=== PATIENT | female | born 1955 | race Caucasian/White ===

== ENCOUNTER 2017-09-21 13:31 | Outpatient (CLI) | payer MEDICARE, OTHER | END 2017-09-21 13:32 | disposition home or self-care (01) | LOC: BICMAMMO 13:31 | PROVIDERS: ATTEND Internal Medicine | DX: Z12.31 Encounter for screening mammogram for malignant neoplasm of breast (principal) | CPT/HCPCS: 77063; 77067 ==

== ENCOUNTER 2018-10-30 11:21 | Outpatient (CLI) | payer MEDICARE, OTHER | END 2018-10-30 11:22 | disposition home or self-care (01) | LOC: BICMAMMO 11:21 | PROVIDERS: ATTEND Internal Medicine | DX: Z12.31 Encounter for screening mammogram for malignant neoplasm of breast (principal); R92.1 Mammographic calcification found on diagnostic imaging of breast | CPT/HCPCS: 77063; 77067 ==

== ENCOUNTER 2019-03-14 08:48 | Outpatient (CLI) | payer MEDICARE, OTHER ==
--- NOTE | 2019-03-14 10:46 | ULT ---
COMPLETE ABDOMEN ULTRASOUND: INDICATION: History of hepatomegaly. COMPARISON: None. FINDINGS: The liver is enlarged measuring 17.7 cm. No focal liver lesion is evident. The spleen is upper limi ts of normal size measuring 12.6 cm. There is a small gallstone within the gallbladder. No pericholecystic fluid is evident. There is mi ld gallbladder wall thickening measuring 3.5 mm. No sonographic Diaz's sign is reported. Common b ile duct measures 3.6 mm. Appropriate hepatopetal flow is seen within the portal vein. The right ki dney measures 9.2 x 4.6 x 4.1 cm. The right renal cortex measures 1.18 cm. The left kidney measures 9.7 x 4.9 x 4.3 cm. The left renal cortex measures 1.1 cm. Visualized aspects of the pancreas, aorta, and IVC were within normal limits. IMPRESSION: 1. Mild hepatomegaly. 2. The spleen is upper limits of normal for size measuring 12.6 cm. 3. Renal cortical thinning bilaterally. POS: [facility]
== END 2019-03-14 08:49 | disposition home or self-care (01) ==
LOC: BICULT 08:48
PROVIDERS: ATTEND Internal Medicine
DX: R16.0 Hepatomegaly, not elsewhere classified (principal); N28.89 Other specified disorders of kidney and ureter
CPT/HCPCS: 76700

== ENCOUNTER 2019-08-06 11:56 | Outpatient (CLI) | payer MEDICARE, OTHER ==
--- NOTE | 2019-08-06 13:47 | MRI ---
MRI ABDOMEN WITHOUT CONTRAST AND MRCP: HISTORY: A 64-year-old female with abnormal liver function tests. FINDINGS: The liver, spleen, pancreas and adrenal glands have a normal appearance. Small gallstones are present . No biliary or pancreatic ductal dilatation is noted. There are bilateral renal cysts. No free fluid or lymphadenopathy is noted. There is no evidence of aneurysmal dilatation of the abdominal aorta. B one marrow signal is normal. IMPRESSION: 1. Cholelithiasis. 2. Bilateral renal cysts. POS: [facility]
== END 2019-08-06 11:57 | disposition home or self-care (01) ==
LOC: BICMRI 11:56
PROVIDERS: ATTEND Internal Medicine Gastroenterology
DX: Z12.11 Encounter for screening for malignant neoplasm of colon (principal); R94.5 Abnormal results of liver function studies; N18.9 Chronic kidney disease, unspecified; R16.2 Hepatomegaly with splenomegaly, not elsewhere classified; K80.20 Calculus of gallbladder without cholecystitis without obstruction; N28.1 Cyst of kidney, acquired
CPT/HCPCS: 74181

== ENCOUNTER 2020-07-14 08:48 | Outpatient (CLI) | payer MEDICARE, OTHER ==
--- NOTE | 2020-07-14 11:21 | CT ---
CT OF THE [facility]ORAX UTILIZING LUNG CANCER SCREENING PROTOCOL PERFORMED WITHOUT IV CONTRAST: Date: 07/14/2020 INDICATION: History of low dose lung cancer screening evaluation; current smoker of approximately 1 pack/day for 32 years. History of diabetes and currently on dialysis. COMPARISON: None. FINDINGS: There is scattered moderate centrilobular emphysema. There are calcified granuloma in the right upper lobe. No suspicious pulmonary nodule is seen. Areas of mild scarring and subsegmental volume loss se en within the lingula and right middle lobe. Small calcified granuloma is seen within the right lower lobe. There are prominent mitral annular calcifications. There are coronary artery and thoracic aortic calc ifications. No definite enlarged lymph nodes are evident. There are layered gallstones within the gal lbladder. Adrenal glands are normal appearing. There is scattered degenerative and osteoarthritic mickie nge. No definite acute osseous abnormality is evident. IMPRESSION: 1. Lung-RADS category 2 - Benign. Recommend low dose annual lung cancer screening CT in 1 year. 2. Category S: Coronary artery thoracic aortic calcifications, mitral annular calcifications, cholel ithiasis, moderate emphysema. POS: [facility]
== END 2020-07-14 08:49 | disposition home or self-care (01) ==
LOC: BICCT 08:48
PROVIDERS: ATTEND Internal Medicine
DX: Z12.2 Encounter for screening for malignant neoplasm of respiratory organs (principal); F17.210 Nicotine dependence, cigarettes, uncomplicated; I25.10 Atherosclerotic heart disease of native coronary artery without angina pectoris; I70.0 Atherosclerosis of aorta; I05.0 Rheumatic mitral stenosis
CPT/HCPCS: G0297

== ENCOUNTER 2020-08-18 10:39 | Outpatient (CLI) | payer MEDICARE, OTHER ==
--- NOTE | 2020-08-18 11:35 | MMO ---
Bilateral MAMMO Bilat Screen [facility]. CLINICAL HISTORY: Patient is 65 years old and is seen for screening. The patient has no family history of breast cancer. The patient has no personal history of cancer. VIEWS: The views performed were: bilateral craniocaudal with tomosynthesis; bilateral mediolateral oblique; and bilateral mediolateral oblique with tomosynthesis. FILMS COMPARED: The present examination has been compared to prior imaging studies performed at [facility] on 09/21/2017 and 10/30/2018. This study has been interpreted with the assistance of computer-aided detection. MAMMOGRAM FINDINGS: There are scattered fibroglandular densities. Benign calcifications are noted bilaterally. There are no suspicious masses, suspicious calcifications, or new areas of architectural distortion. IMPRESSION: THERE IS NO MAMMOGRAPHIC EVIDENCE OF MALIGNANCY. A ROUTINE FOLLOW-UP MAMMOGRAM IN 1 YEAR IS RECOMMENDED. THE RESULTS OF THIS EXAM WERE SENT TO THE PATIENT. ACR BI-RADS Category 2 - Benign finding MAMMOGRAPHY NOTE: 1. A negative mammogram report should not delay a biopsy if a dominant of clinically suspicious mass is present. 2. Approximately 10% to 15% of breast cancers are not detected by mammography. 3. Adenosis and dense breasts may obscure an underlying neoplasm. Reported by: DEJON HAINES MD Electonically Signed: [id number]
== END 2020-08-18 10:40 | disposition home or self-care (01) ==
LOC: BICMAMMO 10:39
PROVIDERS: ATTEND Internal Medicine
DX: Z12.31 Encounter for screening mammogram for malignant neoplasm of breast (principal)
CPT/HCPCS: 77063; 77067

== ENCOUNTER 2021-10-12 08:26 | Outpatient (CLI) | payer MEDICARE | END 2021-10-12 08:27 | disposition home or self-care (01) | LOC: BICMAMMO 08:26 | PROVIDERS: ATTEND Internal Medicine | DX: Z12.31 Encounter for screening mammogram for malignant neoplasm of breast (principal); Z13.820 Encounter for screening for osteoporosis; Z12.2 Encounter for screening for malignant neoplasm of respiratory organs; M85.852 Other specified disorders of bone density and structure, left thigh; M85.851 Other specified disorders of bone density and structure, right thigh; Z78.0 Asymptomatic menopausal state; F17.210 Nicotine dependence, cigarettes, uncomplicated | CPT/HCPCS: 77063; 77067; 77080 ==

== ENCOUNTER 2021-10-21 09:36 | Outpatient (CLI) | payer MEDICARE | END 2021-10-21 09:37 | disposition home or self-care (01) | LOC: BICCT 09:36 | PROVIDERS: ATTEND Internal Medicine | DX: Z12.2 Encounter for screening for malignant neoplasm of respiratory organs (principal); F17.209 Nicotine dependence, unspecified, with unspecified nicotine-induced disorders | CPT/HCPCS: 71271 ==

== ENCOUNTER 2022-03-25 16:49 | Inpatient (IN) | payer MEDICARE ==
[2022-03-25 18:34] LABS: SARS-CoV-2 NAA Rapid Test DETECTED (NotDetected)
[2022-03-25 18:43] LABS: Hemoglobin 10.8 g/dL (12.0-16.0); Mean Corpuscular HGB CONC 32.8 g/dL (32.0-36.0); Mean Corpuscular Hemoglobin 35.4 pg (27.0-31.0); Mean Platelet Volume 8.9 fL (7.4-10.4); Platelet Count 216 thou/uL (130-400); Red Blood Cell (RBC) Count 3.05 mill/uL (4.20-5.40); White Blood Cell (WBC) Count 5.5 thou/uL (4.8-10.8)
[2022-03-25 18:56] LABS: Band 3 % (5-11); Lymphocytes 4 % (21-51); MDiff Complete? YES; Macrocytosis SLIGHT = 6-15 cells (100X) (0-5/hpf); Monocytes 10 % (0-10); Neutrophil 83 % (42-75); Platelet Morphology Comment Appears Adequate; Polychromasia SLIGHT = 2-3 cells (100X) (0-2/hpf)
[2022-03-25 19:01] LABS: ALT (SGPT) 11 U/L (8-55); AST (SGOT) 41 U/L (5-34); Albumin 3.3 g/dL (3.4-4.8); Alkaline Phosphatase 230 U/L (40-110); Anion Gap 20 mmol/L (10-20); BUN (Urea Nitrogen) 16 mg/dL (9.8-20.1); Bilirubin, Total 1.6 mg/dL (0.2-1.2); Calc. Creatinine Clearance 0 mL/min (70-130); Calcium 8.8 mg/dL (7.8-10.44); Carbon Dioxide 28 mmol/L (23-31); Chloride 95 mmol/L (98-107); Estimated GFR 12; Globulin 3.3 g/dL (2.4-3.5); Glucose 221 mg/dL (80-115); Potassium 3.9 mmol/L (3.5-5.1); Protein, Total 6.6 g/dL (5.8-8.1); Sodium 139 mmol/L (136-145)
[2022-03-25] MEDS ORDERED: cefTRIAXone\\ROCEPHIN 2 GM VIAL ONE (19:43)
[2022-03-25] MEDS ORDERED: Dextrose 5% in Water 1,000 ML IV PRN (21:42)
[2022-03-25] MEDS ORDERED: Benzonatate 100 MG CAP PO PRN (21:42)
[2022-03-25] MEDS ORDERED: Dextrose 50% Abboject 50 ML SYRINGE SLOW IVP PRN (21:42)
[2022-03-25] MEDS ORDERED: Azithromycin 500 MG VIAL ONE (23:15)
[2022-03-26] MEDS: HumaLOG 300 UNITS/3 ML VIAL SC PRN ×3 (06:19→17:53)
[2022-03-26 07:33] LABS: Anion Gap 19 mmol/L (10-20); BUN (Urea Nitrogen) 21 mg/dL (9.8-20.1); CRP (Inflammatory) 14.76 mg/dL (= or < 0.5); Calc. Creatinine Clearance 14 mL/min (70-130); Calcium 8.9 mg/dL (7.8-10.44); Carbon Dioxide 26 mmol/L (23-31); Chloride 96 mmol/L (98-107); Estimated GFR 9; Glucose 201 mg/dL (80-115); Potassium 3.1 mmol/L (3.5-5.1); Sodium 138 mmol/L (136-145)
[2022-03-26] MEDS: Ascorbic Acid 500 mg Chewable Tablet PO SCH (08:29)
[2022-03-26] MEDS: Enoxaparin Sodium 30 MG/0.3 ML SYRINGE SC SCH (08:29)
[2022-03-26] MEDS: Cholecalciferol (Vitamin D3) 400 UNITS TAB PO SCH (08:29)
[2022-03-26] MEDS: Zinc Sulfate 220 MG CAP PO SCH (08:29)
[2022-03-26] MEDS ORDERED: Pantoprazole 40 MG VIAL IVP SCH (09:00)
[2022-03-26 09:14] LABS: Eosinophils 2 % (0-10); Hemoglobin 10.2 g/dL (12.0-16.0); Lymphocytes 11 % (21-51); MDiff Complete? YES; Mean Corpuscular HGB CONC 33.1 g/dL (32.0-36.0); Mean Corpuscular Hemoglobin 35.9 pg (27.0-31.0); Mean Platelet Volume 8.8 fL (7.4-10.4); Monocytes 2 % (0-10); Neutrophil 84 % (42-75); Platelet Count 228 thou/uL (130-400); RBC Distribution Width 13.9 % (11.5-14.5); Reactive Lymphocytes 1 % (0-10); Red Blood Cell (RBC) Count 2.85 mill/uL (4.20-5.40); White Blood Cell (WBC) Count 5.2 thou/uL (4.8-10.8)
[2022-03-26] MEDS ORDERED: Potassium Chloride 20 MEQ TAB PO SCH (10:00)
[2022-03-26] MEDS ORDERED: Morphine 2 MG/ML VIAL SLOW IVP PRN (13:02)
[2022-03-26] MEDS: Dexamethasone 10 MG/ML VIAL SLOW IVP SCH (21:21)
[2022-03-26] MEDS ORDERED: REMDESIVIR 100 MG in Sodium Chloride 0.9% 250 ML 230 ML IV SCH (21:45)
[2022-03-27] MEDS: HumaLOG 300 UNITS/3 ML VIAL SC PRN ×4 (06:04→21:17)
[2022-03-27] MEDS: Zinc Sulfate 220 MG CAP PO SCH (08:16)
[2022-03-27] MEDS: Enoxaparin Sodium 30 MG/0.3 ML SYRINGE SC SCH (08:16)
[2022-03-27] MEDS: Cholecalciferol (Vitamin D3) 400 UNITS TAB PO SCH (08:16)
[2022-03-27] MEDS: Ascorbic Acid 500 mg Chewable Tablet PO SCH (08:16)
[2022-03-27 12:08] LABS: Anion Gap 19 mmol/L (10-20); BUN (Urea Nitrogen) 36 mg/dL (9.8-20.1); Calc. Creatinine Clearance 10 mL/min (70-130); Calcium 9.1 mg/dL (7.8-10.44); Carbon Dioxide 24 mmol/L (23-31); Chloride 92 mmol/L (98-107); Estimated GFR 6; Potassium 4.3 mmol/L (3.5-5.1); Sodium 131 mmol/L (136-145)
[2022-03-27 12:14] LABS: Glucose 554 mg/dL (80-115)
[2022-03-27] MEDS: Dexamethasone 10 MG/ML VIAL SLOW IVP SCH (21:10)
[2022-03-28] MEDS ORDERED: ALPRAZolam 0.5 MG TAB PO SCH (05:00)
[2022-03-28] MEDS: HumaLOG 300 UNITS/3 ML VIAL SC PRN ×2 (06:08→12:30)
[2022-03-28 06:48] LABS: #Lymphocytes 0.5 thou/uL (1.20-3.40); #Monocytes 0.3 thou/uL (0.11-0.59); %Basophils 0.1 % (0.0-1.0); %Eosinophils 0.3 % (0.0-10.0); %Lymphocytes 6.1 % (21.0-51.0); %Monocytes 4.4 % (0.0-10.0); %Neutrophils 89.1 % (42.0-75.0); Hemoglobin 9.4 g/dL (12.0-16.0); Mean Corpuscular HGB CONC 32.8 g/dL (32.0-36.0); Mean Corpuscular Hemoglobin 35.3 pg (27.0-31.0); Mean Platelet Volume 9.3 fL (7.4-10.4); Platelet Count 261 thou/uL (130-400); RBC Distribution Width 13.9 % (11.5-14.5); Red Blood Cell (RBC) Count 2.68 mill/uL (4.20-5.40); White Blood Cell (WBC) Count 7.9 thou/uL (4.8-10.8)
[2022-03-28 07:15] LABS: Anion Gap 23 mmol/L (10-20); BUN (Urea Nitrogen) 52 mg/dL (9.8-20.1); Calc. Creatinine Clearance 9 mL/min (70-130); Calcium 9.1 mg/dL (7.8-10.44); Carbon Dioxide 21 mmol/L (23-31); Chloride 92 mmol/L (98-107); Estimated GFR 5; Glucose 368 mg/dL (80-115); Potassium 4.6 mmol/L (3.5-5.1); Sodium 131 mmol/L (136-145)
[2022-03-28] MEDS: NIFEdipine XL 60 MG TAB PO SCH (09:22)
[2022-03-28] MEDS: Ascorbic Acid 500 mg Chewable Tablet PO SCH (09:22)
[2022-03-28] MEDS: Enoxaparin Sodium 30 MG/0.3 ML SYRINGE SC SCH (09:22)
[2022-03-28] MEDS: Zinc Sulfate 220 MG CAP PO SCH (09:22)
[2022-03-28] MEDS: Cholecalciferol (Vitamin D3) 400 UNITS TAB PO SCH (09:23)
[2022-03-28] MEDS ORDERED: Lantus 1000 UNITS/10 ML VIAL SC SCH (12:00)
[2022-03-28] MEDS ORDERED: Insulin Glargine 30 UNITS/0.3 ML VIAL SC SCH (12:30)
[2022-03-28 15:42] LABS: HBSAg Index 0.37 S/CO (0-0.99); Hep B Surf Ag Non-Reactive S/CO (NonReactive)
[2022-03-28] MEDS ORDERED: Lidocaine-Prilocaine 2.5% Cream 5 GM TUBE TOP SCH (15:45)
[2022-03-28] MEDS ORDERED: Lidocaine 1% PF 5 ML VIAL FS SCH (16:15)
[2022-03-28] MEDS: Albuterol 200 PUFF (6.7GM INHALER) INH SCH (21:04)
[2022-03-28] MEDS ORDERED: Dexamethasone 4 MG TAB PO SCH (22:00)
[2022-03-29] MEDS: Albuterol 200 PUFF (6.7GM INHALER) INH SCH ×4 (02:37→18:06)
[2022-03-29] MEDS: HumaLOG 300 UNITS/3 ML VIAL SC PRN ×2 (06:22→16:55)
[2022-03-29 06:56] LABS: #Lymphocytes 0.4 thou/uL (1.20-3.40); #Monocytes 0.4 thou/uL (0.11-0.59); #Neutrophils 7.7 thou/uL (1.40-6.50); %Basophils 0.2 % (0.0-1.0); %Eosinophils 0.3 % (0.0-10.0); %Lymphocytes 4.8 % (21.0-51.0); %Monocytes 4.7 % (0.0-10.0); Hemoglobin 10.2 g/dL (12.0-16.0); Mean Corpuscular HGB CONC 33.6 g/dL (32.0-36.0); Mean Corpuscular Hemoglobin 35.9 pg (27.0-31.0); Mean Platelet Volume 9.3 fL (7.4-10.4); Platelet Count 312 thou/uL (130-400); RBC Distribution Width 14.1 % (11.5-14.5); Red Blood Cell (RBC) Count 2.86 mill/uL (4.20-5.40); White Blood Cell (WBC) Count 8.5 thou/uL (4.8-10.8)
[2022-03-29 07:19] LABS: Anion Gap 20 mmol/L (10-20); BUN (Urea Nitrogen) 31 mg/dL (9.8-20.1); Calc. Creatinine Clearance 13 mL/min (70-130); Calcium 9.1 mg/dL (7.8-10.44); Carbon Dioxide 26 mmol/L (23-31); Chloride 93 mmol/L (98-107); Estimated GFR 8; Glucose 535 mg/dL (80-115); Sodium 135 mmol/L (136-145)
[2022-03-29] MEDS: Enoxaparin Sodium 30 MG/0.3 ML SYRINGE SC SCH (08:23)
[2022-03-29] MEDS: NIFEdipine XL 60 MG TAB PO SCH (08:24)
[2022-03-29] MEDS: Cholecalciferol (Vitamin D3) 400 UNITS TAB PO SCH (08:24)
[2022-03-29] MEDS: Zinc Sulfate 220 MG CAP PO SCH (08:27)
[2022-03-29] MEDS: Ascorbic Acid 500 mg Chewable Tablet PO SCH (08:27)
[2022-03-29 08:59] VITALS: BMI 31.8
[2022-03-29] MEDS ORDERED: Insulin Glargine 30 UNITS/0.3 ML VIAL SC SCH ×3 (09:00→14:15)
[2022-03-29 14:06] LABS: Glucose 605 mg/dL (80-115)
[2022-03-29] MEDS ORDERED: Insulin Regular 300 UNITS/3 ML VIAL IVP SCH (14:15)
[2022-03-29] MEDS ORDERED: HumaLOG 300 UNITS/3 ML VIAL SC SCH (21:45)
[2022-03-30] MEDS: Albuterol 200 PUFF (6.7GM INHALER) INH SCH ×3 (02:28→12:48)
[2022-03-30 05:51] LABS: #Eosinphils 0.1 thou/uL (0.0-0.7); #Lymphocytes 0.8 thou/uL (1.20-3.40); #Monocytes 1.2 thou/uL (0.11-0.59); #Neutrophils 7.4 thou/uL (1.40-6.50); %Basophils 0.1 % (0.0-1.0); %Eosinophils 0.8 % (0.0-10.0); %Lymphocytes 8.3 % (21.0-51.0); %Monocytes 12.9 % (0.0-10.0); %Neutrophils 77.9 % (42.0-75.0); Hemoglobin 9.6 g/dL (12.0-16.0); Mean Corpuscular HGB CONC 33.6 g/dL (32.0-36.0); Mean Corpuscular Hemoglobin 34.9 pg (27.0-31.0); Mean Platelet Volume 9.1 fL (7.4-10.4); Platelet Count 265 thou/uL (130-400); Red Blood Cell (RBC) Count 2.75 mill/uL (4.20-5.40); White Blood Cell (WBC) Count 9.4 thou/uL (4.8-10.8)
[2022-03-30 06:11] LABS: Anion Gap 20 mmol/L (10-20); BUN (Urea Nitrogen) 44 mg/dL (9.8-20.1); Calc. Creatinine Clearance 11 mL/min (70-130); Calcium 9.2 mg/dL (7.8-10.44); Carbon Dioxide 25 mmol/L (23-31); Chloride 95 mmol/L (98-107); Estimated GFR 6; Glucose 269 mg/dL (80-115); Potassium 3.6 mmol/L (3.5-5.1); Sodium 136 mmol/L (136-145)
[2022-03-30 08:17] VITALS: BP 106/63; TEMP 97.7
[2022-03-30] MEDS: Enoxaparin Sodium 30 MG/0.3 ML SYRINGE SC SCH (08:17)
[2022-03-30] MEDS: Ascorbic Acid 500 mg Chewable Tablet PO SCH (08:18)
[2022-03-30] MEDS: Zinc Sulfate 220 MG CAP PO SCH (08:19)
[2022-03-30] MEDS: NIFEdipine XL 60 MG TAB PO SCH (08:19)
[2022-03-30] MEDS: Cholecalciferol (Vitamin D3) 400 UNITS TAB PO SCH (08:19)
[2022-03-30] MEDS ORDERED: Insulin Glargine 30 UNITS/0.3 ML VIAL SC SCH (09:00)
[2022-03-30] MEDS: HumaLOG 300 UNITS/3 ML VIAL SC PRN (13:49)
== END 2022-03-30 17:15 | disposition home or self-care (01) | DRG 177 ==
LOC: ERS 16:49 → T4-B 19:46
PROVIDERS: ADMIT Student in an Organized Health Care Education/Training Program; ATTEND Internal Medicine
PROC: 8E0ZXY6 Isolation (ICD-10-PCS; principal; 2022-03-25)
PROC: 5A1D70Z Performance of Urinary Filtration, Intermittent, Less than 6 Hours Per Day (ICD-10-PCS; 2022-03-28)
DX: U07.1 COVID-19 (principal); J96.01 Acute respiratory failure with hypoxia; N18.6 End stage renal disease; J12.82 Pneumonia due to coronavirus disease 2019; J44.1 Chronic obstructive pulmonary disease with (acute) exacerbation; J44.0 Chronic obstructive pulmonary disease with (acute) lower respiratory infection; E11.65 Type 2 diabetes mellitus with hyperglycemia; T38.0X5A Adverse effect of glucocorticoids and synthetic analogues, initial encounter; E87.6 Hypokalemia; D63.1 Anemia in chronic kidney disease; E11.22 Type 2 diabetes mellitus with diabetic chronic kidney disease; Z99.2 Dependence on renal dialysis; Z79.51 Long term (current) use of inhaled steroids; Z79.890 Hormone replacement therapy; Z79.899 Other long term (current) drug therapy; Z79.4 Long term (current) use of insulin; Z88.8 Allergy status to other drugs, medicaments and biological substances; Z88.1 Allergy status to other antibiotic agents; Z88.6 Allergy status to analgesic agent
CPT/HCPCS: 36415; 36416; 71045; 80048; 80053; 83605; 85025; 86140; 87040; 87340; 90935; 93005; 96365; 96366; 96368; 97139; C9113; G0257; J0456; J0696; J1100; J1650; J1815; J2270; J8540

== ENCOUNTER 2022-05-05 08:59 | Outpatient (CLI) | payer MEDICARE | END 2022-05-05 09:00 | disposition home or self-care (01) | LOC: CT 08:59 | PROVIDERS: ATTEND Thoracic Surgery (Cardiothoracic Vascular Surgery) | DX: I70.25 Atherosclerosis of native arteries of other extremities with ulceration (principal); K74.60 Unspecified cirrhosis of liver; I77.1 Stricture of artery; K80.80 Other cholelithiasis without obstruction | CPT/HCPCS: 75635 ==

== ENCOUNTER 2022-09-02 09:19 | Emergency (ER) | payer MEDICARE ==
[2022-09-02 10:26] LABS: #Eosinphils 0.6 thou/uL (0.0-0.7); #Lymphocytes 0.8 thou/uL (1.20-3.40); #Monocytes 0.9 thou/uL (0.11-0.59); #Neutrophils 5.2 thou/uL (1.40-6.50); %Basophils 0.1 % (0.0-1.0); %Eosinophils 8.4 % (0.0-10.0); %Lymphocytes 10.9 % (21.0-51.0); %Monocytes 12.1 % (0.0-10.0); %Neutrophils 68.4 % (42.0-75.0); Hemoglobin 7.7 g/dL (12.0-16.0); Mean Corpuscular HGB CONC 32.9 g/dL (32.0-36.0); Mean Corpuscular Hemoglobin 35.7 pg (27.0-31.0); Mean Platelet Volume 9.8 fL (7.4-10.4); Platelet Count 185 10x3/uL (130-400); RBC Distribution Width 14.6 % (11.5-14.5); Red Blood Cell (RBC) Count 2.15 mill/uL (4.20-5.40); White Blood Cell (WBC) Count 7.6 10x3/uL (4.8-10.8)
[2022-09-02 10:35] LABS: ALT (SGPT) 14 U/L (8-55); AST (SGOT) 29 U/L (5-34); Albumin 3.4 g/dL (3.4-4.8); Alkaline Phosphatase 491 U/L (40-110); Anion Gap 18 mmol/L (10-20); BUN (Urea Nitrogen) 78 mg/dL (9.8-20.1); Bilirubin, Total 0.8 mg/dL (0.2-1.2); Calc. Creatinine Clearance 0 mL/min (70-130); Calcium 9.3 mg/dL (7.8-10.44); Carbon Dioxide 28 mmol/L (23-31); Chloride 90 mmol/L (98-107); Estimated GFR 6; Globulin 3.7 g/dL (2.4-3.5); Glucose 373 mg/dL (80-115); Potassium 4.3 mmol/L (3.5-5.1); Protein, Total 7.1 g/dL (5.8-8.1); Sodium 132 mmol/L (136-145)
== END 2022-09-02 13:02 | disposition home or self-care (01) ==
LOC: ERS 09:19
DX: D64.9 Anemia, unspecified (principal); E11.22 Type 2 diabetes mellitus with diabetic chronic kidney disease; N18.6 End stage renal disease; Z99.2 Dependence on renal dialysis; Z79.82 Long term (current) use of aspirin
CPT/HCPCS: 36415; 80053; 86850; 86900; 86901; 99284

== ENCOUNTER 2022-10-18 10:14 | Outpatient (CLI) | payer MEDICARE, OTHER | END 2022-10-18 10:15 | disposition home or self-care (01) | LOC: ULT 10:14 | PROVIDERS: ATTEND Internal Medicine Geriatric Medicine | DX: I70.245 Atherosclerosis of native arteries of left leg with ulceration of other part of foot (principal); I70.244 Atherosclerosis of native arteries of left leg with ulceration of heel and midfoot; I70.235 Atherosclerosis of native arteries of right leg with ulceration of other part of foot | CPT/HCPCS: 93923 ==

== ENCOUNTER 2022-11-12 01:03 | Inpatient (IN) | payer MEDICARE ==
[2022-11-12] MEDS ORDERED: HYDROmorphone 0.5 MG/0.5 ML SYRINGE ONE (01:18)
[2022-11-12] MEDS ORDERED: Ondansetron PF 4 MG/2 ML Vial ONE (01:18)
[2022-11-12 02:03] LABS: #Eosinphils 0.2 thou/uL (0.0-0.7); #Monocytes 1.3 thou/uL (0.11-0.59); #Neutrophils 10.3 thou/uL (1.40-6.50); %Basophils 0.1 % (0.0-1.0); %Eosinophils 1.6 % (0.0-10.0); %Monocytes 10.1 % (0.0-10.0); %Neutrophils 80.2 % (42.0-75.0); Mean Corpuscular HGB CONC 31.1 g/dL (32.0-36.0); Mean Corpuscular Hemoglobin 29.6 pg (27.0-31.0); Mean Corpuscular Volume 95.2 fl (78.0-98.0); Platelet Count 193 10x3/uL (130-400); RBC Distribution Width 15.8 % (11.5-14.5); Red Blood Cell (RBC) Count 3.36 mill/uL (4.20-5.40); White Blood Cell (WBC) Count 12.9 10x3/uL (4.8-10.8)
[2022-11-12 02:54] LABS: ALT (SGPT) 22 U/L (8-55); AST (SGOT) 28 U/L (5-34); Albumin 2.5 g/dL (3.4-4.8); Alkaline Phosphatase 422 U/L (40-110); Anion Gap 19 mmol/L (10-20); BUN (Urea Nitrogen) 48 mg/dL (9.8-20.1); Bilirubin, Total 0.4 mg/dL (0.2-1.2); Calc. Creatinine Clearance 0 mL/min (70-130); Carbon Dioxide 23 mmol/L (23-31); Chloride 97 mmol/L (98-107); Estimated GFR 6; Globulin 3.5 g/dL (2.4-3.5); Glucose 113 mg/dL (80-115); Lipase 22 U/L (8-78); Magnesium 2.4 mg/dL (1.6-2.6); Potassium 2.7 mmol/L (3.5-5.1); Sodium 136 mmol/L (136-145)
[2022-11-12] MEDS ORDERED: Piperacillin/Tazobactam 3.375 GM VIAL ONE (03:27)
[2022-11-12 03:33] LABS: Bilirubin Negative (Negative); Blood, Urine 2+ (Negative); Clarity Turbid (Clear); Glucose, Urine (Dipstick) 150 mg/dL (Negative); Ketone, Urine Negative (Negative); Leukocyte 500 Leu/uL (Negative); Nitrite Negative (Negative); Protein, Urine (Dipstick) 70 mg/dL (Neg-Trace); Squamous Epithelial 0-3 HPF (0-3); Urobilinogen Normal mg/dL (Less than 2); pH, Urine 7.5 (5.0-9.0)
[2022-11-12 03:34] LABS: Bacteria/HPF 1+ HPF (None Seen)
[2022-11-12] MEDS ORDERED: Ondansetron ODT 4 MG TAB PO PRN (04:58)
[2022-11-12] MEDS ORDERED: Senokot S 8.6-50 MG TAB PO PRN (04:58)
[2022-11-12] MEDS ORDERED: HumaLOG 300 UNITS/3 ML VIAL SC PRN (05:00)
[2022-11-12] MEDS ORDERED: Dextrose 5% in Water 1,000 ML IV PRN (05:00)
[2022-11-12] MEDS ORDERED: Dextrose 50% Abboject 50 ML SYRINGE SLOW IVP PRN (05:00)
[2022-11-12] MEDS ORDERED: Albuterol 200 PUFF (6.7GM INHALER) INH PRN (05:02)
[2022-11-12] MEDS: Levothyroxine 150 MCG TAB PO SCH (06:25)
[2022-11-12 06:44] VITALS: BMI 32.3
[2022-11-12 07:20] LABS: SARS-CoV-2 NAA Rapid Test Not Detected (NotDetected)
[2022-11-12] MEDS ORDERED: ALPRAZolam 0.25 MG TAB PO PRN (07:54)
[2022-11-12] MEDS ORDERED: Piperacillin/Tazobactam 3.375 GM in Sodium Chloride 0.9% 100 ML IVPB SCH (08:00)
[2022-11-12 08:25] LABS: Glucose 42 mg/dL (80-115)
[2022-11-12] MEDS ORDERED: Insulin NPH Human Isophane 100 UNIT/ML (10 ML VIAL) SC SCH (09:00)
[2022-11-12] MEDS: Piperacillin/Tazobactam 3.375 GM in Sodium Chloride 0.9% 100 ML IVPB SCH ×2 (09:20→23:24)
[2022-11-12] MEDS: Famotidine 20 MG TAB PO SCH (09:25)
[2022-11-12 12:00] LABS: Glucose 132 mg/dL (80-115)
[2022-11-12] MEDS ORDERED: Potassium Chloride 20 MEQ TAB PO SCH (13:15)
[2022-11-12 13:29] LABS: Anion Gap 22 mmol/L (10-20); BUN (Urea Nitrogen) 48 mg/dL (9.8-20.1); Calc. Creatinine Clearance 10 mL/min (70-130); Calcium 9.8 mg/dL (7.8-10.44); Carbon Dioxide 22 mmol/L (23-31); Chloride 96 mmol/L (98-107); Estimated GFR 6; Glucose 103 mg/dL (80-115); Potassium 3.2 mmol/L (3.5-5.1); Sodium 137 mmol/L (136-145)
[2022-11-12] MEDS ORDERED: ISOVUE-370 76%-LOCM 1 ML ONE (15:13)
[2022-11-12 17:19] LABS: Glucose 105 mg/dL (80-115)
[2022-11-13] MEDS: Levothyroxine 150 MCG TAB PO SCH (06:27)
[2022-11-13 07:24] LABS: #Eosinphils 0.2 thou/uL (0.0-0.7); #Lymphocytes 0.9 thou/uL (1.20-3.40); #Monocytes 1.5 thou/uL (0.11-0.59); #Neutrophils 11.1 thou/uL (1.40-6.50); %Eosinophils 1.2 % (0.0-10.0); %Lymphocytes 6.8 % (21.0-51.0); %Neutrophils 80.9 % (42.0-75.0); Hemoglobin 10.1 g/dL (12.0-16.0); Mean Corpuscular HGB CONC 31.5 g/dL (32.0-36.0); Mean Corpuscular Hemoglobin 30.1 pg (27.0-31.0); Mean Corpuscular Volume 95.6 fl (78.0-98.0); Mean Platelet Volume 9.9 fL (7.4-10.4); Platelet Count 197 10x3/uL (130-400); Red Blood Cell (RBC) Count 3.35 mill/uL (4.20-5.40); White Blood Cell (WBC) Count 13.7 10x3/uL (4.8-10.8)
[2022-11-13 07:51] LABS: ALT (SGPT) 21 U/L (8-55); AST (SGOT) 27 U/L (5-34); Albumin 2.5 g/dL (3.4-4.8); Alkaline Phosphatase 408 U/L (40-110); Anion Gap 16 mmol/L (10-20); BUN (Urea Nitrogen) 26 mg/dL (9.8-20.1); Bilirubin, Total 0.6 mg/dL (0.2-1.2); Calc. Creatinine Clearance 15 mL/min (70-130); Calcium 9.2 mg/dL (7.8-10.44); Carbon Dioxide 27 mmol/L (23-31); Chloride 99 mmol/L (98-107); Estimated GFR 9; Globulin 3.6 g/dL (2.4-3.5); Glucose 65 mg/dL (80-115); Potassium 3.4 mmol/L (3.5-5.1); Protein, Total 6.1 g/dL (5.8-8.1); Sodium 139 mmol/L (136-145)
[2022-11-13] MEDS: Famotidine 20 MG TAB PO SCH (09:24)
[2022-11-13] MEDS: Piperacillin/Tazobactam 3.375 GM in Sodium Chloride 0.9% 100 ML IVPB SCH ×2 (09:24→20:59)
[2022-11-13] MEDS ORDERED: Potassium Chloride 20 MEQ TAB PO SCH (10:00)
[2022-11-14] MEDS ORDERED: Morphine 2 MG/ML VIAL SLOW IVP PRN (03:23)
[2022-11-14] MEDS: Levothyroxine 150 MCG TAB PO SCH (05:47)
[2022-11-14 07:32] LABS: ALT (SGPT) 24 U/L (8-55); AST (SGOT) 31 U/L (5-34); Albumin 2.4 g/dL (3.4-4.8); Alkaline Phosphatase 462 U/L (40-110); Anion Gap 18 mmol/L (10-20); BUN (Urea Nitrogen) 35 mg/dL (9.8-20.1); Bilirubin, Total 0.6 mg/dL (0.2-1.2); Calc. Creatinine Clearance 12 mL/min (70-130); Calcium 8.8 mg/dL (7.8-10.44); Carbon Dioxide 23 mmol/L (23-31); Chloride 101 mmol/L (98-107); Estimated GFR 7; Globulin 3.5 g/dL (2.4-3.5); Glucose 121 mg/dL (80-115); Potassium 3.4 mmol/L (3.5-5.1); Protein, Total 5.9 g/dL (5.8-8.1); Sodium 139 mmol/L (136-145)
[2022-11-14] MEDS: Famotidine 20 MG TAB PO SCH (07:47)
[2022-11-14] MEDS: Piperacillin/Tazobactam 3.375 GM in Sodium Chloride 0.9% 100 ML IVPB SCH (07:47)
[2022-11-14] MEDS: Acetaminophen 325 MG TAB PO PRN ×2 (07:48→14:18)
[2022-11-14 08:29] VITALS: BP 134/61; TEMP 97.7
[2022-11-14] MEDS ORDERED: Heparin 10,000 UNITS/ 10 ML VIAL ONE (09:07)
[2022-11-14 10:16] LABS: #Eosinphils 0.2 thou/uL (0.0-0.7); #Lymphocytes 0.9 thou/uL (1.20-3.40); #Monocytes 1.2 thou/uL (0.11-0.59); #Neutrophils 10.2 thou/uL (1.40-6.50); %Basophils 0.2 % (0.0-1.0); %Eosinophils 1.9 % (0.0-10.0); %Lymphocytes 7.3 % (21.0-51.0); %Monocytes 9.5 % (0.0-10.0); %Neutrophils 81.2 % (42.0-75.0); Mean Corpuscular HGB CONC 30.2 g/dL (32.0-36.0); Mean Corpuscular Hemoglobin 29.1 pg (27.0-31.0); Mean Corpuscular Volume 96.3 fl (78.0-98.0); Mean Platelet Volume 9.6 fL (7.4-10.4); Platelet Count 191 10x3/uL (130-400); Red Blood Cell (RBC) Count 3.43 mill/uL (4.20-5.40); White Blood Cell (WBC) Count 12.5 10x3/uL (4.8-10.8)
== END 2022-11-14 18:45 | DRG 444 ==
LOC: ERS 01:03 → SURG A 04:29
PROVIDERS: ADMIT Internal Medicine; ATTEND Internal Medicine
PROC: 5A1D70Z Performance of Urinary Filtration, Intermittent, Less than 6 Hours Per Day (ICD-10-PCS; principal; 2022-11-12)
DX: K80.50 Calculus of bile duct without cholangitis or cholecystitis without obstruction (principal); Z66 Do not resuscitate; Z51.5 Encounter for palliative care; Z20.822 Contact with and (suspected) exposure to COVID-19; N18.6 End stage renal disease; N39.0 Urinary tract infection, site not specified; L03.311 Cellulitis of abdominal wall; R18.8 Other ascites; I12.0 Hypertensive chronic kidney disease with stage 5 chronic kidney disease or end stage renal disease; N25.81 Secondary hyperparathyroidism of renal origin; E11.22 Type 2 diabetes mellitus with diabetic chronic kidney disease; E11.51 Type 2 diabetes mellitus with diabetic peripheral angiopathy without gangrene; K74.60 Unspecified cirrhosis of liver; D63.1 Anemia in chronic kidney disease; E11.65 Type 2 diabetes mellitus with hyperglycemia; E83.59 Other disorders of calcium metabolism; E66.01 Morbid (severe) obesity due to excess calories; Z68.32 Body mass index [BMI] 32.0-32.9, adult; Z99.2 Dependence on renal dialysis; Z88.6 Allergy status to analgesic agent; Z88.1 Allergy status to other antibiotic agents; Z88.8 Allergy status to other drugs, medicaments and biological substances; Z79.890 Hormone replacement therapy; Z79.4 Long term (current) use of insulin; Z79.52 Long term (current) use of systemic steroids
CPT/HCPCS: 36415; 36416; 74175; 76705; 80053; 81003; 81015; 83605; 83690; 83735; 85025; 87040; 87086; 93005; 97139; J1170; J1815; J2272; J2405; J2543; J3490; Q9966; U0002

== ENCOUNTER 2022-11-24 16:46 | Emergency (ER) | payer MEDICARE, SELFPAY ==
[2022-11-24 17:52] LABS: #Lymphocytes 0.9 thou/uL (1.20-3.40); #Monocytes 1.3 thou/uL (0.11-0.59); #Neutrophils 12.1 thou/uL (1.40-6.50); %Basophils 0.1 % (0.0-1.0); %Eosinophils 0.1 % (0.0-10.0); %Monocytes 9.3 % (0.0-10.0); %Neutrophils 84.5 % (42.0-75.0); Hemoglobin 9.1 g/dL (12.0-16.0); Mean Corpuscular HGB CONC 31.6 g/dL (32.0-36.0); Mean Corpuscular Hemoglobin 30.2 pg (27.0-31.0); Mean Corpuscular Volume 95.5 fl (78.0-98.0); Mean Platelet Volume 9.8 fL (7.4-10.4); Platelet Count 208 10x3/uL (130-400); RBC Distribution Width 17.8 % (11.5-14.5); Red Blood Cell (RBC) Count 3.02 mill/uL (4.20-5.40); White Blood Cell (WBC) Count 14.3 10x3/uL (4.8-10.8)
[2022-11-24] MEDS ORDERED: FENTANYL 50 MCG/ML 1 ML VIAL ONE (18:18)
[2022-11-24] MEDS ORDERED: Piperacillin/Tazobactam 3.375 GM VIAL ONE (18:18)
[2022-11-24 18:19] LABS: ALT (SGPT) 13 U/L (8-55); AST (SGOT) 23 U/L (5-34); Albumin 2.8 g/dL (3.4-4.8); Alkaline Phosphatase 276 U/L (40-110); Anion Gap 19 mmol/L (10-20); BUN (Urea Nitrogen) 34 mg/dL (9.8-20.1); Bilirubin, Total 0.4 mg/dL (0.2-1.2); Calc. Creatinine Clearance 0 mL/min (70-130); Calcium 9.2 mg/dL (7.8-10.44); Carbon Dioxide 25 mmol/L (23-31); Chloride 97 mmol/L (98-107); Estimated GFR 12; Globulin 3.7 g/dL (2.4-3.5); Glucose 108 mg/dL (80-115); Lipase Less than 4 U/L (8-78); Potassium 3.3 mmol/L (3.5-5.1); Protein, Total 6.5 g/dL (5.8-8.1); Sodium 138 mmol/L (136-145)
[2022-11-24] MEDS ORDERED: VANCOMYCIN 1.75 GM/500 ML BAG 1.75 GM in Premix Bag 1 BAG IVPB SCH (18:30)
[2022-11-24 19:11] LABS: INR-International Normal Ratio 1.4; PTT 57.6 sec (22.9-36.1)
== END 2022-11-24 21:55 | disposition short-term general hospital (02) ==
LOC: ERS 16:46
DX: T81.41XA Infection following a procedure, superficial incisional surgical site, initial encounter (principal); D72.829 Elevated white blood cell count, unspecified; E11.51 Type 2 diabetes mellitus with diabetic peripheral angiopathy without gangrene; E78.5 Hyperlipidemia, unspecified; E11.22 Type 2 diabetes mellitus with diabetic chronic kidney disease; N18.6 End stage renal disease; I12.0 Hypertensive chronic kidney disease with stage 5 chronic kidney disease or end stage renal disease; Z99.2 Dependence on renal dialysis
CPT/HCPCS: 80053; 82550; 83605; 83690; 85025; 85610; 85730; 86850; 86900; 86901; 87040; 93005; J3010; J3370; 36415; 96365; 96375; J2543